=== PATIENT | male | born 1990 | race Caucasian/White ===

== ENCOUNTER 2024-01-06 10:04 | Outpatient (CLI) | payer MEDICAID, SELFPAY | END 2024-01-06 10:05 | disposition home or self-care (01) | LOC: NFLDREF 14:50 | PROVIDERS: PCP Family Medicine; Referring Provider Family Medicine; Visit Provider Family Medicine | DX: B35.1 Tinea unguium (principal) | CPT/HCPCS: 84450; 84460 ==

== ENCOUNTER 2024-08-23 11:45 | Outpatient (CLI) | payer MEDICAID, SELFPAY | END 2024-08-23 11:46 | disposition home or self-care (01) | LOC: NFLDREF 08-27 21:44 | PROVIDERS: PCP Family Medicine; Referring Provider Family Medicine; Visit Provider Family Medicine | DX: Z11.3 Encounter for screening for infections with a predominantly sexual mode of transmission (principal); Z11.1 Encounter for screening for respiratory tuberculosis; Z11.4 Encounter for screening for human immunodeficiency virus [HIV] | CPT/HCPCS: 86480; 86703; 87491; 87591 ==